=== PATIENT | female | born 1980 | race Caucasian/White ===

== ENCOUNTER 2020-06-21 20:58 | Emergency (ER) | payer OTHER ==
[~2020-06-21] VITALS: Ht 162.6 cm; Wt 56.7 kg
[2020-06-21 21:18] VITALS: Ht 162.6 cm; Wt 56.7 kg
[2020-06-22 01:20] LABS: microscopic required? NO
[2020-06-22 01:35] LABS: BASOPHIL % 0.4 % (0.2-1.3); PLATELET COUNT 227 x10^3mcL (179-408); urine erythrocyte NEGATIVE (NEGATIVE)
[2020-06-22 01:36] LABS: RED CELL DISTRIBUTION WIDTH 14.7 % (12.3-17.7)
[2020-06-22 01:42] LABS: CARBON DIOXIDE 24.4 mmol/L (21-32); CHLORIDE SERUM 107 mmol/L (98-107); CREATININE SERUM 0.8 mg/dL (0.6-1.0); GFR1 > 60 mL/min; GLUCOSE SERUM 116 mg/dL (74-106); POTASSIUM SERUM 3.7 mmol/L (3.5-5.1); SODIUM SERUM 142 mmol/L (136-145)
[2020-06-22 01:49] LABS: ALBUMIN 3.5 g/dL (3.4-5.0); ALKALINE PHOSPHATASE 44 U/L (46-116); ALT/SGPT 29 U/L (14-59); AST/SGOT 13 U/L (15-37); BILIRUBIN TOTAL 0.57 mg/dL (0.20-1.00); TOTAL PROTEIN, SERUM 6.2 g/dL (6.4-8.2)
[2020-06-22 02:18] VITALS: BP 96/57
== END 2020-06-22 02:18 | disposition home or self-care (01) ==
LOC: ED 20:58
PROVIDERS: Emergency Medicine
DX: R55 Syncope and collapse (principal); E86.0 Dehydration